=== PATIENT | female | born 1950 | race Asian ===

== ENCOUNTER 2017-03-15 09:01 | Outpatient (CLI) | payer OTHER | END 2017-03-15 19:24 | disposition home or self-care (01) | LOC: MAMMO 09:01 | DX: Z12.31 Encounter for screening mammogram for malignant neoplasm of breast (principal) ==

== ENCOUNTER 2017-09-19 09:43 | Outpatient (CLI) | payer OTHER | END 2017-09-19 22:35 | disposition home or self-care (01) | LOC: RAD 09:43 | DX: M81.0 Age-related osteoporosis without current pathological fracture (principal) ==

== ENCOUNTER 2018-01-19 05:05 | Emergency (ER) | payer OTHER ==
[~2018-01-19] VITALS: Ht 162.6 cm; Wt 90.7 kg
[2018-01-19 06:45] VITALS: BP 113/59; TEMP 98
== END 2018-01-19 06:51 | disposition home or self-care (01) ==
LOC: ED 05:05
DX: T78.3XXA Angioneurotic edema, initial encounter (principal)
CPT/HCPCS: 96372; 99283; J1200; J2930

== ENCOUNTER 2018-01-24 08:36 | Outpatient (CLI) | payer OTHER | END 2018-01-24 21:19 | disposition home or self-care (01) | LOC: CT 08:36 | DX: K46.9 Unspecified abdominal hernia without obstruction or gangrene (principal) | CPT/HCPCS: 36415; 82565; 84520; Q9963 ==

== ENCOUNTER 2018-03-21 07:37 | Day surgery (SDC) | payer OTHER ==
[2018-03-21 08:20] LABS: PLATELET COUNT 278 K/uL (152-353)
[2018-03-21 08:32] LABS: POTASSIUM 3.4 mmol/L (3.6-5.2)
== END 2018-03-21 10:40 | disposition home or self-care (01) ==
LOC: OR 07:37
PROVIDERS: Student in an Organized Health Care Education/Training Program
PROC: 0DJD8ZZ Inspection of Lower Intestinal Tract, Via Natural or Artificial Opening Endoscopic (ICD-10-PCS; principal; 2018-03-21)
DX: K57.30 Diverticulosis of large intestine without perforation or abscess without bleeding (principal); Z86.010 Personal history of colon polyps; Z12.11 Encounter for screening for malignant neoplasm of colon
CPT/HCPCS: 80053; 85027; J2001; J2250; J2704; J3490

== ENCOUNTER 2018-07-05 09:36 | Outpatient (CLI) | payer OTHER | END 2018-07-05 19:45 | disposition home or self-care (01) | LOC: MAMMO 09:36 | DX: Z12.31 Encounter for screening mammogram for malignant neoplasm of breast (principal) ==

== ENCOUNTER 2019-11-02 08:11 | Outpatient (CLI) | payer OTHER | END 2019-11-02 19:57 | disposition home or self-care (01) | LOC: MRI 08:11 | DX: M54.12 Radiculopathy, cervical region (principal) ==

== ENCOUNTER 2019-12-24 09:09 | Outpatient (CLI) | payer OTHER | END 2019-12-24 19:05 | disposition home or self-care (01) | LOC: MRI 09:09 | DX: D10.4 Benign neoplasm of tonsil (principal); I63.81 Other cerebral infarction due to occlusion or stenosis of small artery | CPT/HCPCS: 36415; 82565; 84520; Q9963 ==

== ENCOUNTER 2020-01-14 08:20 | Outpatient (CLI) | payer OTHER | END 2020-01-14 19:08 | disposition home or self-care (01) | LOC: RESP 08:20 | DX: I63.81 Other cerebral infarction due to occlusion or stenosis of small artery (principal); Z12.31 Encounter for screening mammogram for malignant neoplasm of breast; J44.9 Chronic obstructive pulmonary disease, unspecified; F17.210 Nicotine dependence, cigarettes, uncomplicated | CPT/HCPCS: G0297-TC ==

== ENCOUNTER 2020-01-17 09:37 | Outpatient (CLI) | payer OTHER | END 2020-01-17 22:15 | disposition home or self-care (01) | LOC: MAMMO 09:37 | DX: I63.81 Other cerebral infarction due to occlusion or stenosis of small artery (principal); R92.8 Other abnormal and inconclusive findings on diagnostic imaging of breast | CPT/HCPCS: G0279 ==

== ENCOUNTER 2020-03-20 08:12 | Outpatient (CLI) | payer OTHER | END 2020-03-20 19:19 | disposition home or self-care (01) | LOC: NM 08:12 | PROVIDERS: ATTEND Specialist | DX: I63.9 Cerebral infarction, unspecified (principal); R07.89 Other chest pain; I10 Essential (primary) hypertension | CPT/HCPCS: A9500; J2785 ==

== ENCOUNTER 2020-03-24 09:42 | Outpatient (CLI) | payer OTHER | END 2020-03-24 19:34 | disposition home or self-care (01) | LOC: EMG 09:42 | PROVIDERS: ATTEND Nurse Practitioner Family | DX: M50.322 Other cervical disc degeneration at C5-C6 level (principal); M54.12 Radiculopathy, cervical region | CPT/HCPCS: 95860; 95910 ==

== ENCOUNTER 2020-09-12 10:23 | Outpatient (CLI) | payer OTHER | END 2020-09-12 19:07 | disposition home or self-care (01) | LOC: MAMMO 10:23 | PROVIDERS: ATTEND Nurse Practitioner Family | DX: Z12.31 Encounter for screening mammogram for malignant neoplasm of breast (principal); R92.8 Other abnormal and inconclusive findings on diagnostic imaging of breast | CPT/HCPCS: G0279 ==

== ENCOUNTER 2020-10-20 10:52 | Outpatient (CLI) | payer OTHER | END 2020-10-20 19:32 | disposition home or self-care (01) | LOC: CT 10:52 | PROVIDERS: ATTEND Nurse Practitioner Family | DX: R55 Syncope and collapse (principal) ==

== ENCOUNTER 2021-04-23 08:29 | Outpatient (CLI) | payer OTHER | END 2021-04-23 18:53 | disposition home or self-care (01) | LOC: MAMMO 08:29 → US 09:00 → MAMMO 18:53 | PROVIDERS: ATTEND Nurse Practitioner Family | DX: R92.8 Other abnormal and inconclusive findings on diagnostic imaging of breast (principal); E04.1 Nontoxic single thyroid nodule; Z12.31 Encounter for screening mammogram for malignant neoplasm of breast ==

== ENCOUNTER 2021-06-16 08:44 | Outpatient (CLI) | payer OTHER | END 2021-06-16 18:59 | disposition home or self-care (01) | LOC: US 08:44 | PROVIDERS: ATTEND Nurse Practitioner Family | DX: M67.412 Ganglion, left shoulder (principal) ==

== ENCOUNTER 2021-11-17 12:31 | Outpatient (CLI) | payer OTHER ==
[~2021-11-17] VITALS: Ht 157.5 cm; Wt 79.0 kg
[2021-11-17 12:48] VITALS: BP 129/54; TEMP 98.6
--- NOTE | 2021-11-17 13:09 | NUR ---
1248 PT AMBULATED TO ROOM 1128 FOR OP INFUSION. VS OBTAINED. 22G PIV TO LFA X1 ATTEPMT FLUSHED WITH 10ML NS. SECURED WITH TEGADERM. ADVERSE REACTIONS EXPLAINED TO PT. PT VERBALIZED UNDERSTANDING OF WHAT TO REPORT.
--- NOTE | 2021-11-17 13:31 | NUR ---
1323 BEBTELOVIMAB IVP OVER SECONDS FOLLWED BY 10ML NS FLUSH. PT TOLERATED WITH NO COMPLAINTS. WILL MONITOR VS PER ORDER
[2021-11-17 13:40] VITALS: BP 136/60; TEMP 98.4
--- NOTE | 2021-11-17 13:46 | NUR ---
1340 PT SITTING IN RECLINER WATCHING COOKING VIDEOS ON HER PHONE. DENIES ANY S/S OF ADVERSE REACTIONS. NO COMPLAINTS VOICED AT THIS TIME
[2021-11-17 13:55] VITALS: BP 138/58; TEMP 98.4
--- NOTE | 2021-11-17 14:06 | NUR ---
1355 PT DENIES ANY COMPLAINTS AT THIS TIME. NO ADVERSE REACTIONS SUSPECTED.
[2021-11-17 14:25] VITALS: BP 138/61; TEMP 98.2
--- NOTE | 2021-11-17 14:35 | NUR ---
1430 PT TOLERATED INFUSION WITH NO ADVERSE REACTIONS SUSPECTED. PIV D/C INTACT , SITE CARE PROVIDED. PT AMBULATED TO POV IN NO DISTRESS.
== END 2021-11-17 21:37 | disposition home or self-care (01) ==
LOC: INF 12:31
PROVIDERS: ATTEND Family Medicine
DX: Z23 Encounter for immunization (principal); U07.1 COVID-19
CPT/HCPCS: 96374; Q0222

== ENCOUNTER 2022-04-12 09:16 | Outpatient (CLI) | payer OTHER | END 2022-04-12 21:36 | disposition home or self-care (01) | LOC: MAMMO 09:16 | PROVIDERS: ATTEND Nurse Practitioner Primary Care | DX: N64.89 Other specified disorders of breast (principal) | CPT/HCPCS: G0279 ==

== ENCOUNTER 2022-04-20 10:14 | Outpatient (CLI) | payer OTHER ==
[2022-04-20 11:15] LABS: POTASSIUM 4.2 mmol/L (3.6-5.2)
== END 2022-04-20 19:16 | disposition home or self-care (01) ==
LOC: RESP 10:14 → LABW 10:14
PROVIDERS: ATTEND Nurse Practitioner Primary Care
DX: R55 Syncope and collapse (principal)
CPT/HCPCS: 36415; 80053; 93005

== ENCOUNTER 2022-05-14 08:31 | Outpatient (CLI) | payer OTHER | END 2022-05-14 19:22 | disposition home or self-care (01) | LOC: RAD 08:31 | PROVIDERS: ATTEND Nurse Practitioner Primary Care | DX: Z13.820 Encounter for screening for osteoporosis (principal); N95.8 Other specified menopausal and perimenopausal disorders ==

== ENCOUNTER 2022-09-22 06:20 | Emergency (ER) | payer OTHER ==
[~2022-09-22] VITALS: Ht 157.5 cm; Wt 76.2 kg
[2022-09-22 09:25] VITALS: BP 145/80; TEMP 97.9
== END 2022-09-22 09:25 | disposition home or self-care (01) ==
LOC: ED 06:20
DX: M54.31 Sciatica, right side (principal); F17.210 Nicotine dependence, cigarettes, uncomplicated
CPT/HCPCS: 99282

== ENCOUNTER 2022-09-29 14:18 | Outpatient (CLI) | payer OTHER | END 2022-09-29 20:11 | disposition home or self-care (01) | LOC: RAD 14:18 | PROVIDERS: ATTEND Nurse Practitioner Family | DX: M54.17 Radiculopathy, lumbosacral region (principal) ==

== ENCOUNTER 2022-10-27 08:15 | Outpatient (CLI) | payer OTHER | END 2022-10-27 21:01 | disposition home or self-care (01) | LOC: US 08:15 → MRI 09:00 → US 21:01 | PROVIDERS: ATTEND Nurse Practitioner Family | DX: R94.4 Abnormal results of kidney function studies (principal); M47.896 Other spondylosis, lumbar region ==